=== PATIENT | female | born 2000 | race Two or more races ===

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

== ENCOUNTER 2024-01-03 10:30 | Inpatient (IN) | payer OTHER ==
[2024-01-03] MEDS: ELECTROLYTE-148 SOLN 1,000 ML IV SCH (10:40)
[2024-01-03] MEDS ORDERED: BUTORPHANOL TARTRATE 2 MG/ML VIAL ONE (10:59)
[2024-01-03] MEDS ORDERED: PROMETHAZINE HCL 25 MG/1 ML VIAL ONE (10:59)
[2024-01-03] MEDS: BUTORPHANOL TARTRATE 2 MG/ML VIAL IVPB PRN (11:05)
[2024-01-03] MEDS: PROMETHAZINE HCL 25 MG/1 ML VIAL IVPB ONE (11:05)
[2024-01-03 11:15] LABS: BASO % 0.2 % (0-2.0); EOS % 0.5 % (0-4.5); HEMATOCRIT 35.1 % (32.4-45.2); HEMOGLOBIN 11.3 GM/dL (10.7-15.3); LYMPH % 10.9 % (8-40); MCH 23.5 pg (25.7-33.7); MCHC 32.1 g/dl (32.0-36.0); MEAN CELL VOLUME 73.2 fl (80-96); MEAN PLT VOLUME 6.8 fl (7.5-11.1); MONO % 5.6 % (3.8-10.2); NEUT % 82.8 % (42.8-82.8); PLATELET COUNT 405 10^3/uL (134-434); RBC 4.79 M/mm3 (3.60-5.2); RDW 16.9 % (11.6-15.6)
[2024-01-03 11:25] LABS: INR 0.96 (0.83-1.09); PROTHROMBIN TIME (PATIENT) 11.1 SEC (9.7-13.0)
[2024-01-03 11:28] LABS: ACTIVATED PTT 28.1 SECONDS (25.2-36.5)
[2024-01-03 11:35] LABS: POTASSIUM 4.1 mmol/L (3.5-5.1)
[2024-01-03 11:37] LABS: CALCIUM 8.6 mg/dL (8.5-10.1)
[2024-01-03 11:38] LABS: BLOOD UREA NITROGEN 5.4 mg/dL (7-18)
[2024-01-03 11:41] LABS: CREATININE 0.5 mg/dL (0.55-1.3)
[2024-01-03 12:10] VITALS: BMI 37.8
[2024-01-03 13:59] LABS: POC NITRAZINE POS
[2024-01-03 14:05] LABS: HIV INTERPRETATION NEGATIVE (NEGATIVE)
[2024-01-03] MEDS ORDERED: FENTANYL/BUPIVACAINE/NS/PF - PCEA - 50 ML DISP.SYRIN EP ONE (15:07)
[2024-01-03] MEDS ORDERED: OXYTOCIN 20 UNITS in 0.9% NS 20 UNIT/1,000 ML INFUS.BAG IV ONE (15:19)
[2024-01-03] MEDS: FENTANYL/BUPIVACAINE/NS/PF - PCEA - 50 ML DISP.SYRIN EP SCH (16:10)
[2024-01-03] MEDS ORDERED: NALOXONE HCL 0.4 MG/ML VIAL IVPUSH PRN (16:27)
[2024-01-03] MEDS: OXYTOCIN 20 UNITS in 0.9% NS 20 UNIT/1,000 ML INFUS.BAG IV SCH (19:50)
[2024-01-03] MEDS ORDERED: oxyCODONE HCL 5 MG TABLET PO PRN (20:04)
[2024-01-03] MEDS ORDERED: BISACODYL 10 MG SUPP.RECT RC PRN (20:04)
[2024-01-03] MEDS ORDERED: METHYLERGONOVINE MALEATE 0.2 MG/1 ML AMP IM PRN (20:04)
[2024-01-03] MEDS ORDERED: BENZOCAINE 28 GM HEMORRHOIDAL OINTMENT TP PRN (20:04)
[2024-01-03] MEDS ORDERED: ACETAMINOPHEN 325 MG TABLET (FP) PO PRN (20:04)
[2024-01-03] MEDS ORDERED: WITCH HAZEL 50% (TUCKS) 40 PAD/JAR PAD TP PRN (20:04)
[2024-01-03] MEDS ORDERED: IBUPROFEN 600 MG TABLET (FP) PO ONE (20:15)
[2024-01-03] MEDS: IBUPROFEN 600 MG TABLET (FP) PO PRN (20:15)
[2024-01-03 21:08] LABS: CORD BASE EXCESS -7.7 mmol/L (0-2); CORD HCO3 17.6 mmHg (20-29); CORD PCO2 35.6 mmHg (30-78); CORD pH 7.311 (7.14-7.44)
[2024-01-04 07:46] LABS: BASO % 0.3 % (0-2.0); EOS % 0.4 % (0-4.5); HEMOGLOBIN 9.1 GM/dL (10.7-15.3); LYMPH % 13.6 % (8-40); MCH 23.7 pg (25.7-33.7); MCHC 32.4 g/dl (32.0-36.0); MEAN CELL VOLUME 73.3 fl (80-96); NEUT % 77.7 % (42.8-82.8); PLATELET COUNT 335 10^3/uL (134-434); RBC 3.82 M/mm3 (3.60-5.2); RDW 16.9 % (11.6-15.6); WHITE BLOOD COUNT 16.9 K/mm3 (4.0-10.0)
[2024-01-04] MEDS: BENZOCAINE 20% 57 GM BOTTLE TP PRN (09:04)
[2024-01-04] MEDS: PRENATAL VITAMINS W/ FOLIC ACID TABLET (FP) PO SCH (09:04)
[2024-01-04] MEDS: FERROUS SO4 325 MG TABLET (FP) PO SCH (09:04)
[2024-01-04] MEDS: DIPHTH,PERTUSS(ACELL),TET 0.5 ML DISP.SYRIN IM ONE (12:35)
[2024-01-04] MEDS: SENNOSIDES/DOCUSATE COMBO (SENNA PLUS) TABLET (UD) PO PRN (22:16)
[2024-01-05 09:50] VITALS: BP 111/72; PULSE 89; RESP 18; TEMP 98
== END 2024-01-05 12:55 | disposition home or self-care (01) | DRG 560 ==
LOC: JLDR 10:30 → J3W 22:49
PROVIDERS: ADMIT Obstetrics & Gynecology; ATTEND Obstetrics & Gynecology
PROC: 0HQ9XZZ Repair Perineum Skin, External Approach (ICD-10-PCS; principal; 2024-01-03)
PROC: 10E0XZZ Delivery of Products of Conception, External Approach (ICD-10-PCS; 2024-01-03)
DX: O70.0 First degree perineal laceration during delivery (principal); Z3A.39 39 weeks gestation of pregnancy; Z37.0 Single live birth
CPT/HCPCS: 36415; 36600; 59025; 80048; 82803; 83986-QW; 85025; 85610; 85730; 86780; 86850; 86900; 86901; 87389; 90715